=== PATIENT | female | born 1945 | race Caucasian/White ===

== ENCOUNTER 2016-05-10 11:15 | Emergency (ER) | payer BC ==
[2016-05-10 11:15] VITALS: BP 122/68
--- NOTE | 2016-05-10 11:35 | ERNOTE ---
[facility] Date of Service: 05/10/16 Presenting Symptoms: eye pain Time Seen by Provider: 05/10/16 11:26 Source: patient Exam Limitations: no limitations - Immun/Allergies/Home Medications Immunizations: IMMUNIZATION HX Immunizations Up to Date Yes History of Influenza Vaccine Yes Hx Pneumococcal Vaccination No Allergies/Adverse Reactions: Allergies Allergy/AdvReac Type Severity Reaction Status Date / Time azithromycin [From Zithromax] Allergy Unknown Unverified 03/13/12 10:17 Home Medications: HOME MEDICATIONS Atenolol 50 mg PO DAILY 03/06/12 [Last Taken Unknown] Paroxetine HCl [Paxil] 20 mg PO DAILY 03/06/12 [Last Taken Unknown] Bacitracin/Polymyxin B Sulfate [Polysporin Ophthalmic Ointment] 1 appl OP BID # 1 tube 05/10/16 [Last Taken Unknown] - History of Present Illness Narrative: Pt. comes in with eye redness and irritation since she woke up his morning. Pt. denies any vision changes but states when her eye ríos it makes it difficult to see clearly. Pt. denies any SOB, CP, dizziness, lightheadedness, or eye injury. Pt. denies any prehospital treatment other than wasing her eye lid to get rid of the drainage stuck to her lashes this morning. Review of Systems - Review of Systems Constitutional: Present: no symptoms reported. Absent: recent illness, fever, chills, weakness, fatigue EYE: Present: eye pain, eye discharge - clear. Absent: blurred vision, double vision, vision changes ENT: Present: no symptoms reported. Absent: ear pain, nose pain, nose congestion, nasal drainage, sore throat Respiratory: Present: no symptoms reported. Absent: shortness of breath, cough , wheezing Cardiology: Present: no symptoms reported. Absent: chest pain, palpitations, edema Gastrointestinal/Abdominal: Present: no symptoms reported. Absent: nausea, vomiting, diarrhea Genitourinary: Present: no symptoms reported Musculoskeletal: Present: no symptoms reported. Absent: back pain, joint pain Skin: Present: no symptoms reported. Absent: rash, change in color Neurological: Present: no symptoms reported. Absent: headache, dizziness/light- headedness, numbness, tingling All Other Systems: All systems neg except as marked - Patient's Past Medical History Patient History - Medical: No pertinent hx Patient History - Cardiac/Respiratory: Hypertension Patient History - Cancer: No Hx of Cancer Patient History - Surgical Procedures: Hysterectomy Patient History - Other: None - Social History Living Situations: home Smoking Status: Never smoker Have you smoked in the past 12 months: No - Immunizations Immunizations Up to Date: Yes Hx Pneumococcal Vaccination: No History of Influenza Vaccine: Yes Physical Exam - Physical Exam General Appearance: Present: wd/wn, alert, no apparent distress Eye Exam: Normal inspection: left, PERRL: bilateral, EOMI: bilateral, Sclera injection: right, Eye drainage: right, Other: right - staining exam no abrasions or foreign body Ears, Nose, Throat: Present: normal ENT inspection, hearing grossly normal, normal pharynx Neck: Present: normal inspection, nontender. 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 Absent: pallor, skin rash ED Progress - Date and Time Seen: Date and Time: 05/10/16 11:40 Acuity exam 20/ 20 bilat - Vital Signs Patient's Vital Signs:: I have reviewed the patient's vital signs. Vital Signs: Vital Signs 05/10/16 11:20 Temperature 36.4 C L Pulse Rate 70 Respiratory 16 Rate O2 Sat by Pulse 95 Oximetry - Progress/Reassessment Chief Complaint: Eye Injury/Trauma Departure Clinical Impression: Conjunctivitis Qualifiers: Conjunctivitis type: acute Acute conjunctivitis type: bacterial Laterality: right Qualified Code(s): H10.31 - Unspecified acute conjunctivitis, right eye - Departure Disposition: Home self-care Condition: Good Instructions: Bacterial Conjunctivitis, [id number], Form - Excuse from Work, School, or Physical Activity Additional Instructions: Please follow up with eye doctor in 2-3 days if no improvement Referrals: Mariya Montgomery MD [Primary Care Provider] - Prescriptions: Bacitracin/Polymyxin B Sulfate [Polysporin Ophthalmic Ointment] 1 appl OP BID # 1 tube
== END 2016-05-10 11:50 | disposition home or self-care (01) ==
LOC: ER 11:15
DX: H10.31 Unspecified acute conjunctivitis, right eye (principal); I10 Essential (primary) hypertension